=== PATIENT | female | born 1960 | race Two or more races ===

== ENCOUNTER 2017-02-13 23:25 | Emergency (ER) | payer OTHER ==
--- NOTE | 2017-02-13 23:50 | NUR ---
CALLED FOR PT NO ANSWER LWBT
== END 2017-02-13 23:51 | disposition left against medical advice (07) ==
LOC: ER 23:27
DX: Z53.21 Procedure and treatment not carried out due to patient leaving prior to being seen by health care provider (principal)

== ENCOUNTER 2018-07-13 04:33 | Emergency (ER) | payer SELFPAY ==
[~2018-07-13] VITALS: Ht 162.6 cm; Wt 63.5 kg
--- NOTE | 2018-07-13 04:48 | NUR ---
MD GONZALEZ AT BEDSIDE FOR MSE
[2018-07-13] MEDS ORDERED: LORAZEPAM 2 MG/1 ML VIAL IV ONE (05:00)
[2018-07-13 05:03] LABS: BASOPHILS % (AUTO) 0.3 % (0.0-2.0); EOSINOPHILS # (AUTO) 0.3 K/uL (0.0-0.7); EOSINOPHILS % (AUTO) 2.4 % (0.0-7.0); HEMATOCRIT 41.6 % (31.2-41.9); HEMOGLOBIN 13.9 g/dL (10.9-14.3); LYMPHOCYTES # (AUTO) 4.3 K/uL (20.0-40.0); LYMPHOCYTES % (AUTO) 40.1 % (20.5-51.5); MEAN CORPUSCULAR HEMOGLOBIN 27.3 uug (24.7-32.8); MEAN CORPUSCULAR HGB CONC 34 g/dL (32.3-35.6); MEAN CORPUSCULAR VOLUME 81.5 fL (75.5-95.3); MONOCYTES # (AUTO) 0.8 K/uL (2.0-10.0); MONOCYTES % (AUTO) 7.2 % (0.0-11.0); NEUTROPHILS # (AUTO) 5.4 K/uL (1.8-8.9); PLATELET COUNT (AUTO) 279 K/uL (179-408); WHITE BLOOD COUNT (AUTO) 10.7 K/uL (3.8-11.8)
[2018-07-13] MEDS ORDERED: LORAZEPAM 2 MG/1 ML VIAL ONE (05:04)
[2018-07-13 05:22] LABS: CREATININE 0.8 mg/dL (0.6-1.3); POTASSIUM 3.2 mmol/L (3.5-5.1)
--- NOTE | 2018-07-13 05:45 | NUR ---
Patient discharged to home in stable conditon. Peripheral IV was removed. Written and verbal after care instructions given. Patient verbalizes understanding of instructions. Patient able to ambulate unassisted with steady gait. Patient left with all personal belongings.
[2018-07-13 05:56] VITALS: BP 134/80
== END 2018-07-13 05:45 | disposition home or self-care (01) ==
LOC: ER 04:34
DX: F41.9 Anxiety disorder, unspecified (principal)
CPT/HCPCS: 36415; 80048; 84484; 85025; 93005; 96374; 99285; A4663; J2060; J7030; 70030-TC